=== PATIENT | female | born 1985 | race Caucasian/White ===

== ENCOUNTER 2025-01-04 22:53 | Emergency (ER) | payer SELFPAY ==
[~2025-01-04] VITALS: Ht 165.1 cm; Wt 73.0 kg
[2025-01-04 22:56] VITALS: TEMP 36.7; O2SAT 97
[2025-01-04 23:38] LABS: BASOPHILS % 0.3 % (0.0-2.0); DIFFERENTIAL COMMENT 0; EOSINOPHILS % 2.6 % (0.0-5.0); HEMATOCRIT. 33.8 % (36.0-48.0); HEMOGLOBIN. 11.1 g/dL (12.0-16.0); LYMPHOCYTES % 20.5 % (20.0-50.0); MEAN CORPUSCULAR HEMOGLOBIN 24.7 pg (28.0-32.0); MEAN CORPUSCULAR HGB CONC 32.7 g/dL (31.0-37.0); MEAN CORPUSCULAR VOLUME 75.3 fL (81.0-99.0); MEAN PLATELET VOLUME 7.3 fl (7.4-10.4); MONOCYTES % 3.7 % (2.0-8.0); NEUTROPHILS % 72.9 % (40.0-76.0); PLATELET 430 x1000/uL (130-400); RED BLOOD CELL COUNT 4.49 mill/uL (4.2-5.4); WHITE BLOOD COUNT 10.2 x1000/uL (4.5-11.0)
[2025-01-04 23:43] LABS: CHLORIDE 108 mEq/L (98-107); POTASSIUM 3.6 mEq/L (3.5-5.1); SODIUM 141 mEq/L (136-145)
[2025-01-04 23:44] LABS: CARBON DIOXIDE 25 mEq/L (21-32)
[2025-01-04 23:45] LABS: CALCIUM 8.9 mg/dL (8.7-10.4)
[2025-01-04 23:49] LABS: CREATININE 0.7 mg/dL (0.6-1.0); GLUCOSE 110 mg/dL (70-105); HCG SCREEN NEGATIVE
[2025-01-04 23:50] LABS: UREA NITROGEN BLOOD 17 mg/dL (9-23)
[2025-01-04 23:52] LABS: TROPONIN I HIGH SENSITIVITY < 4 ng/L (3.0-34)
[2025-01-04] MEDS: KETOROLAC 30MG/ML VIAL IV ONE (23:58)
[2025-01-05] MEDS ORDERED: IBUP-2030 MT (01:13)
[2025-01-05 01:43] VITALS: BP 127/66; PULSE 89; RESP 18; O2SAT 98
== END 2025-01-05 01:55 | disposition home or self-care (01) ==
LOC: ER 22:53
DX: R07.89 Other chest pain (principal); F17.200 Nicotine dependence, unspecified, uncomplicated; M06.9 Rheumatoid arthritis, unspecified; Z88.0 Allergy status to penicillin
CPT/HCPCS: 99285; 96374; 80048; 84703; 85025; 85379; 84484; 36415; 71045; J1885